=== PATIENT | female | born 1965 | race African-American/Black ===

== ENCOUNTER 2024-12-02 02:10 | Inpatient (IN) | payer OTHER ==
[~2024-12-02] VITALS: Ht 162.6 cm; Wt 64.0 kg
[2024-12-02] MEDS ORDERED: MORPHINE SULFATE 4 MG/ML INJ (FOR IV/IM USE) IV STA (02:24)
[2024-12-02] MEDS: PANTOPRAZOLE SODIUM 40 MG/VIAL IV STA (02:49)
[2024-12-02] MEDS: ONDANSETRON HCL 4MG/2ML INJ IV STA (02:49)
[2024-12-02 02:50] LABS: HEMATOCRIT. 38.7 % (36.0-48.0); MEAN CORPUSCULAR HEMOGLOBIN 29.4 pg (28.0-32.0); MEAN CORPUSCULAR HGB CONC 33.5 g/dL (31.0-37.0); MEAN CORPUSCULAR VOLUME 87.5 fL (81.0-99.0); MEAN PLATELET VOLUME 7.3 fl (7.4-10.4); PLATELET 269 x1000/uL (130-400); RED BLOOD CELL COUNT 4.42 mill/uL (4.2-5.4); RED CELL DISTRIBUTION WIDTH 13.4 % (11.6-14.6); WHITE BLOOD COUNT 9.5 x1000/uL (4.5-11.0)
[2024-12-02] MEDS: ACETAMINOPHEN 325MG TABLET PO ONE (02:50)
[2024-12-02] MEDS: SODIUM CHLORIDE 0.9% 1,000 ML IV ONE ×2 (02:50→04:35)
[2024-12-02 02:56] LABS: DIFFERENTIAL COMMENT 1
[2024-12-02 02:57] LABS: CARBON DIOXIDE 28 mEq/L (21-32); CHLORIDE 106 mEq/L (98-107); POTASSIUM 3.3 mEq/L (3.5-5.1); SODIUM 143 mEq/L (136-145)
[2024-12-02 02:58] LABS: CALCIUM 9.3 mg/dL (8.7-10.4)
[2024-12-02 03:02] LABS: CREATININE 0.8 mg/dL (0.6-1.0)
[2024-12-02 03:03] LABS: GLUCOSE 139 mg/dL (70-105); UREA NITROGEN BLOOD 13 mg/dL (9-23)
[2024-12-02 03:04] LABS: ALANINE AMINOTRANSFERASE 24 IU/L (10-49); ALBUMIN 4.3 g/dL (3.2-4.8); ASPARTATE AMINOTRANSFERASE 36 IU/L (<34)
[2024-12-02 03:05] LABS: BILIRUBIN DIRECT 0.2 mg/dL (<=3.0); BILIRUBIN TOTAL 0.8 mg/dL (0.1-1.0); PROTEIN TOTAL 7.1 g/dL (6.0-8.3)
[2024-12-02 03:11] LABS: PROTHROMBIN TIME 10.4 sec (9.6-11.0)
[2024-12-02] MEDS ORDERED: PIPERACILLIN/TAZO 3.375G/50ML 50 ML IV STA (04:05)
[2024-12-02] MEDS: MORPHINE SULFATE 4 MG/ML INJ (FOR IV/IM USE) IV NR (04:14)
[2024-12-02] MEDS ORDERED: CEFEPIME 2GM IN DEXT 5% 100ML IV ONE (04:45)
[2024-12-02] MEDS ORDERED: CEFEPIME 2GM/50ML DUPLEX 50 ML IV NR (04:45)
[2024-12-02] MEDS: METRONIDAZOLE 500 MG PREMIX 100 ML IV STA (04:50)
[2024-12-02] MEDS ORDERED: KCL 20MEQ/100ML PREMIX 100 ML IV ONE (05:00)
[2024-12-02 05:35] LABS: LACTIC ACID 2.5 mmol/L (0.4-2.0)
[2024-12-02] MEDS ORDERED: ONDANSETRON HCL 4MG/2ML INJ IV PRN (05:45)
[2024-12-02] MEDS ORDERED: GLYCOPYRROLATE 0.2 MG/ML 2ML VIAL IV PRN (05:45)
[2024-12-02] MEDS ORDERED: HYDROMORPHONE HCL/PF 1MG/ML INJ IV PRN (05:45)
[2024-12-02] MEDS ORDERED: HYDRALAZINE 20MG/ML VIAL IV PRN (05:45)
[2024-12-02] MEDS ORDERED: BUPIVACAINE HCL/PF 0.5% (5MG/ML) 10ML ONE (05:46)
[2024-12-02] MEDS ORDERED: SKIN ADHESIVE 0.7 GM EA TOP ONE (05:46)
[2024-12-02] MEDS ORDERED: MIDAZOLAM HCL 2 MG/2 ML VIAL ONE (06:08)
[2024-12-02] MEDS ORDERED: HYDROMORPHONE HCL/PF 1MG/ML INJ ONE (06:09)
[2024-12-02] MEDS ORDERED: ROCURONIUM BROMIDE 10MG/ML VIAL 5ML IV ONE (06:09)
[2024-12-02 06:18] LABS: PLATELET ESTIMATE NORMAL
[2024-12-02 06:24] LABS: CLARITY URINE CLEAR (CLEAR); COLOR URINE YELLOW (YELLOW); GLUCOSE URINE NEGATIVE (NEGATIVE); KETONES URINE NEGATIVE (NEGATIVE); LEUKOCYTE ESTERASE URINE TRACE (NEGATIVE); NITRITE URINE NEGATIVE (NEGATIVE); OCCULT BLOOD URINE NEGATIVE (NEGATIVE); PROTEIN URINE NEGATIVE (NEGATIVE); SPECIFIC GRAVITY URINE 1.021 (1.005-1.030); UROBILINOGEN URINE 0.2 E.U./dL (0.2-1.0)
[2024-12-02] MEDS ORDERED: METHYLENE BLUE 50MG/10ML AMP IV ONE (06:29)
[2024-12-02] MEDS ORDERED: GLYCOPYRROLATE 0.2 MG/ML 2ML VIAL ONE (07:10)
[2024-12-02] MEDS ORDERED: NEOSTIGMINE METHYLSULFATE 1MG/ML 10 ML VIAL ONE (07:10)
[2024-12-02] MEDS ORDERED: SUGAMMADEX SODIUM 200MG/2ML VIAL IV ONE (07:15)
[2024-12-02 07:24] LABS: BACTERIA URINE NONE SEEN; RBC URINE 0-2 /hpf (0-2); SQUAMOUS EPITHELIAL CELL URINE NONE SEEN /lpf (RARE/1+); WBC URINE 0-2 /hpf (0-2)
[2024-12-02] MEDS: HYDROMORPHONE HCL/PF 1MG/ML INJ IV PRN ×2 (07:34→07:48)
[2024-12-02 08:50] VITALS: BP 131/73; PULSE 105; RESP 20; TEMP 36.6; O2SAT 95
[2024-12-02 09:00] VITALS: BP 131/73; PULSE 105; RESP 20; TEMP 36.6
[2024-12-02] MEDS: DEXT 5%/0.45% NACL 1000ML 1,000 ML IV SCH (10:45)
[2024-12-02 12:00] VITALS: BP 128/68; PULSE 98; RESP 17; TEMP 37; O2SAT 95
[2024-12-02] MEDS: CEFEPIME 1GM/50ML 50 ML IV SCH (12:10)
[2024-12-02] MEDS: METRONIDAZOLE 500 MG PREMIX 100 ML IV SCH (13:02)
[2024-12-02] MEDS ORDERED: NALOXONE HCL 0.4MG/ML VIAL IV PRN (14:00)
[2024-12-02] MEDS: KCL 20MEQ/100ML PREMIX 100 ML IV NR (14:46)
[2024-12-02] MEDS: MORPHINE SULFATE 2 MG/ML INJ (NOT FOR IM USE) IV PRN (15:43)
[2024-12-02 16:00] VITALS: BP 119/66; PULSE 91; RESP 18; TEMP 36.9; O2SAT 99
[2024-12-02 20:00] VITALS: BP 109/60; PULSE 93; RESP 18; TEMP 36.6; O2SAT 97
[2024-12-03] VITALS: BP 106/59; PULSE 105; RESP 18; TEMP 36.7; O2SAT 97
[2024-12-03 08:00] VITALS: BP 99/45; PULSE 106; RESP 18; TEMP 36.8; O2SAT 100
[2024-12-03 08:17] LABS: HEMATOCRIT. 34.3 % (36.0-48.0); HEMOGLOBIN. 11.4 g/dL (12.0-16.0); MEAN CORPUSCULAR HEMOGLOBIN 29.3 pg (28.0-32.0); MEAN CORPUSCULAR HGB CONC 33.3 g/dL (31.0-37.0); MEAN CORPUSCULAR VOLUME 88.1 fL (81.0-99.0); MEAN PLATELET VOLUME 7.9 fl (7.4-10.4); PLATELET 217 x1000/uL (130-400); RED BLOOD CELL COUNT 3.89 mill/uL (4.2-5.4); RED CELL DISTRIBUTION WIDTH 13.5 % (11.6-14.6); WHITE BLOOD COUNT 12.4 x1000/uL (4.5-11.0)
[2024-12-03 08:24] LABS: CARBON DIOXIDE 27 mEq/L (21-32); CHLORIDE 101 mEq/L (98-107); POTASSIUM 3.8 mEq/L (3.5-5.1); SODIUM 137 mEq/L (136-145)
[2024-12-03 08:26] LABS: DIFFERENTIAL COMMENT 1
[2024-12-03 08:30] LABS: CREATININE 0.6 mg/dL (0.6-1.0); GLUCOSE 116 mg/dL (70-105); UREA NITROGEN BLOOD 7 mg/dL (9-23)
[2024-12-03] MEDS: PANTOPRAZOLE SODIUM 40 MG/VIAL IV SCH (09:00)
[2024-12-03 11:34] LABS: CALCIUM 8.8 mg/dL (8.7-10.4)
[2024-12-03 12:00] VITALS: BP 112/55; PULSE 112; RESP 18; TEMP 36.8
[2024-12-03 16:00] VITALS: BP 110/56; PULSE 124; RESP 20; TEMP 36.8; O2SAT 100
[2024-12-03 16:25] LABS: PLATELET ESTIMATE NORMAL
[2024-12-03] MEDS: DIGOXIN 500MCG/2ML AMP IV NR (18:15)
[2024-12-03 20:00] VITALS: BP 115/64; PULSE 124; RESP 17; TEMP 36.2; O2SAT 96
[2024-12-04] VITALS: BP 133/74; PULSE 113; RESP 17; TEMP 36.4; O2SAT 98
[2024-12-04 04:00] VITALS: BP 105/59; PULSE 108; RESP 17; TEMP 36.7; O2SAT 98
[2024-12-04 08:00] VITALS: BP 110/65; PULSE 90; RESP 18; TEMP 36.8; O2SAT 99
[2024-12-04 12:00] VITALS: BP 112/70; PULSE 78; RESP 16; TEMP 36.7; O2SAT 99
[2024-12-04 16:00] VITALS: BP 117/80; PULSE 86; RESP 17; TEMP 36.6; O2SAT 99
[2024-12-04 20:00] VITALS: BP 116/73; PULSE 108; RESP 19; TEMP 36.4; O2SAT 99
[2024-12-05] VITALS: BP 117/72; PULSE 101; RESP 20; TEMP 36.7; O2SAT 98
[2024-12-05 04:00] VITALS: BP 115/70; PULSE 97; RESP 19; TEMP 36.5; O2SAT 97
[2024-12-05 08:05] VITALS: BP 120/69; PULSE 102; RESP 18; TEMP 36.8; O2SAT 96
[2024-12-05 12:00] VITALS: BP 109/68; PULSE 91; RESP 20; TEMP 37.1; O2SAT 97
[2024-12-05 16:00] VITALS: BP 127/68; PULSE 90; RESP 19; TEMP 37.2; O2SAT 95
[2024-12-05 20:00] VITALS: BP 121/62; PULSE 101; RESP 18; TEMP 36.2; O2SAT 96
[2024-12-05] MEDS: CEFEPIME 2GM/50ML DUPLEX 50 ML IV SCH (21:21)
[2024-12-06] VITALS: BP 117/72; PULSE 78; RESP 19; TEMP 36.2; O2SAT 99
[2024-12-06 04:00] VITALS: BP 132/77; PULSE 85; RESP 19; TEMP 36.1; O2SAT 100
[2024-12-06 08:00] VITALS: BP 117/68; PULSE 97; RESP 19; TEMP 36.8; O2SAT 97
[2024-12-06 12:00] VITALS: BP 132/79; PULSE 94; RESP 20; TEMP 36.8; O2SAT 97
[2024-12-06 16:00] VITALS: BP 108/63; PULSE 83; RESP 20; TEMP 36.7; O2SAT 96
[2024-12-06 20:00] VITALS: BP 114/58; PULSE 94; RESP 18; TEMP 36.5; O2SAT 96
[2024-12-07] VITALS: BP 120/55; PULSE 83; RESP 18; TEMP 37.1; O2SAT 96
[2024-12-07 04:00] VITALS: BP 111/71; PULSE 99; RESP 19; TEMP 36.8; O2SAT 96
[2024-12-07] MEDS: METRONIDAZOLE 500MG TABLET PO SCH (18:09)
[2024-12-08] MEDS ORDERED: METR-167 MT (09:04)
[2024-12-08 12:13] VITALS: BP 110/70; PULSE 78; TEMP 98; O2SAT 98
== END 2024-12-08 13:07 | disposition home or self-care (01) | DRG 853 ==
LOC: ER 02:10 → 8EST 04:32
PROVIDERS: ADMIT Internal Medicine; ATTEND Internal Medicine
PROC: 0DJW0ZZ Inspection of Peritoneum, Open Approach (ICD-10-PCS; principal; 2024-12-02)
DX: A41.9 Sepsis, unspecified organism (principal); J18.9 Pneumonia, unspecified organism; K22.3 Perforation of esophagus; E87.20 Acidosis, unspecified; K57.30 Diverticulosis of large intestine without perforation or abscess without bleeding; E87.6 Hypokalemia; Z88.0 Allergy status to penicillin
CPT/HCPCS: 36415; 71045; 74176; 80048; 80076; 81003; 83605; 85025; 86850; 86900; 87076; 99291; A4606; J0665; J0692; J1160; J1171; J2250; J2270; J2405; J2470; J2710; J3480; J3490; J7030; J7120; Q9968